=== PATIENT | male | born 1955 | race Two or more races ===

== ENCOUNTER 2016-07-17 08:11 | Day surgery (SDC) | payer OTHER ==
[~2016-07-17] VITALS: Ht 175.3 cm; Wt 97.5 kg
[~2016-07-17 08:11] MED LIST: IOHEXOL 350 MG/ML 100ML IJ ONE; LIDOCAINE 2%HCL (LOCAL ANESTH.) INJ 20ML MDV ONE
[2016-07-17] MEDS ORDERED: MIDAZOLAM HCL 1MG/1ML-2 ML VIAL ONE (08:58)
[2016-07-17] MEDS ORDERED: fentaNYL CITRATE 100 MCG/2 ML VL ONE (08:58)
[2016-07-17] MEDS ORDERED: SODIUM CHL 0.9% 0 ML ONE (08:58)
[2016-07-17] MEDS ORDERED: ANGIOMAX 250 MG VIAL IV ONE (08:58)
== END 2016-07-17 15:41 | disposition home or self-care (01) ==
LOC: CATH 08:11
PROVIDERS: ATTEND Specialist
DX: I25.10 Atherosclerotic heart disease of native coronary artery without angina pectoris (principal)
CPT/HCPCS: 82962; 93458; C1751; C1760; C1894; J1644; J2250; J3010; J7030; Q9967; 99152

== ENCOUNTER → 2020-03-07 | Outpatient (CLI) | payer OTHER ==
[~2020-03-07] VITALS: Ht 172.7 cm; Wt 90.7 kg
[~2020-03-07] MED LIST changes: +ASPI81CH43 PO; +ATEN50TA PO; +ATO40T PO; +INSU100I33 SC; -IOHEXOL 350 MG/ML 100ML IJ ONE; +ISOS60TA24 PO; -LIDOCAINE 2%HCL (LOCAL ANESTH.) INJ 20ML MDV ONE; +METO25TA36 PO
== END | disposition home or self-care (01) ==
LOC: CATH 10:30 → EDSTATUS 03-12 07:56
PROVIDERS: ATTEND Internal Medicine Cardiovascular Disease
DX: Z01.818 Encounter for other preprocedural examination (principal); I25.10 Atherosclerotic heart disease of native coronary artery without angina pectoris; I50.9 Heart failure, unspecified; E66.9 Obesity, unspecified; Z68.30 Body mass index [BMI] 30.0-30.9, adult

== ENCOUNTER 2020-06-18 06:52 | Day surgery (SDC) | payer OTHER ==
[~2020-06-18] VITALS: Ht 175.3 cm; Wt 92.5 kg
[~2020-06-18 06:52] MED LIST changes: +CARV6.2551 PO; +INSU100I49 SC; -METO25TA36 PO; +NITR0.4S29 SL
[2020-06-18] MEDS ORDERED: IOHEXOL 350 MG/ML 100ML IJ ONE (07:10)
[2020-06-18] MEDS ORDERED: LIDOCAINE 2%HCL (LOCAL ANESTH.) INJ 20ML MDV ONE (07:10)
[2020-06-18] MEDS ORDERED: fentaNYL CITRATE 100 MCG/2 ML VL ONE (08:03)
[2020-06-18] MEDS ORDERED: VERAPAMIL 2.5MG/ML INJ 2ML VIAL IV ONE (08:03)
[2020-06-18] MEDS ORDERED: ANGIOMAX 250 MG VIAL IV ONE (08:03)
[2020-06-18] MEDS ORDERED: MIDAZOLAM HCL 2MG/2ML 2ml VIAL (1mg/ml) ONE (08:04)
[2020-06-18] MEDS ORDERED: SODIUM CHL 0.9% 0 ML ONE (08:04)
[2020-06-18] MEDS ORDERED: HEPARIN SODIUM (PORCINE) 5000 UNITS/ML 1ML VIAL ONE (08:04)
[2020-06-18] MEDS ORDERED: NITROGLYCERIN 5MG/ML 10ML VIAL IV ONE (08:05)
[2020-06-18] MEDS ORDERED: SODIUM CHL 0.9% 100 ML ONE (08:05)
[2020-06-18] MEDS ORDERED: hydrALAZINE HCL 25 MG TAB PO ONE (09:15)
[2020-06-18] MEDS ORDERED: ONDANSETRON HCL 4 MG/2 ML VIAL IV PRN (09:15)
[2020-06-18] MEDS ORDERED: ACETAMINOPHEN 500 MG TAB PO PRN (09:15)
[2020-06-18] MEDS ORDERED: HYDROcodone-ACET 5/325MG TAB PO PRN (09:15)
== END 2020-06-18 11:22 | disposition home or self-care (01) ==
LOC: CATH 06:52
PROVIDERS: ATTEND Internal Medicine Cardiovascular Disease
DX: I25.10 Atherosclerotic heart disease of native coronary artery without angina pectoris (principal); E78.5 Hyperlipidemia, unspecified; E11.9 Type 2 diabetes mellitus without complications; I11.0 Hypertensive heart disease with heart failure; Z98.890 Other specified postprocedural states; Z79.899 Other long term (current) drug therapy; Z20.822 Contact with and (suspected) exposure to COVID-19; Z87.891 Personal history of nicotine dependence; Z68.30 Body mass index [BMI] 30.0-30.9, adult
CPT/HCPCS: 93454; C1769; C1887; C1894; J1644; J2250; J3010; J3490; Q9967; U0003; 99152; 99153